=== PATIENT | female | born 1995 | race Caucasian/White ===

== ENCOUNTER 2018-02-05 15:48 | Emergency (ER) | payer BC, OTHER ==
[2018-02-05 16:10] VITALS: BP 143/84; TEMP 98.4; O2SAT 99
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
== END 2018-02-05 16:46 | disposition home or self-care (01) ==
LOC: ER 15:48
DX: O99.89 Other specified diseases and conditions complicating pregnancy, childbirth and the puerperium (principal); S70.12XA Contusion of left thigh, initial encounter; S70.02XA Contusion of left hip, initial encounter; S40.022A Contusion of left upper arm, initial encounter; R07.81 Pleurodynia; Z3A.30 30 weeks gestation of pregnancy; W01.0XXA Fall on same level from slipping, tripping and stumbling without subsequent striking against object, initial encounter; Y92.512 Supermarket, store or market as the place of occurrence of the external cause